=== PATIENT | male | born 1995 | race Caucasian/White ===

== ENCOUNTER 2017-06-15 10:32 | Emergency (ER) | payer SELFPAY ==
[2017-06-15] MEDS ORDERED: VALIUM PO ONE (12:04)
[2017-06-15] MEDS ORDERED: TORADOL IM ONE (12:04)
--- NOTE | 2017-06-15 12:13 | Emergency Department Report ---
HPI - General Chief Complaint: Neck Pain/Injury Time Seen by Provider: 06/15/17 11:56 - HPI HPI: This is a 22-year-old [place] male who presents to the emergency department from the [facility] with the complaint of left-sided neck pain that he believes is a muscle spasm that occurred about 30 minutes prior to presentation while he was "in class." The patient is therefore psychiatric conditions as a involuntary admission. He denies any trauma to the neck. He denies any headache, vision change, slurred speech, rash or skin color change. He did not take anything and was not given anything for his symptoms and presentation. He has a past medical history of hypertension. He says that he does have a primary care physician for follow-up once he is done at [facility]. ED Past Medical Hx - Past Medical History Previous Medical History?: Yes Hx Hypertension: Yes Hx Psychiatric Treatment: Yes (depression) Additional medical history: anxiety - Surgical History Past Surgical History?: No - Social History Smoking Status: Current Every Day Smoker Substance Use Type: None ED Review of Systems ROS: Stated complaint: MUSCLE SPASM IN NECK Other details as noted in HPI Comment: All other systems reviewed and negative Constitutional: denies: chills, fever Eyes: denies: eye pain, eye discharge, vision change ENT: denies: ear pain, throat pain Respiratory: denies: cough, shortness of breath, wheezing Cardiovascular: denies: chest pain, palpitations Gastrointestinal: denies: abdominal pain, nausea, diarrhea Genitourinary: denies: urgency, dysuria Musculoskeletal: other (neck pain). denies: back pain, joint swelling, arthralgia Skin: denies: rash, lesions Neurological: denies: headache, weakness, paresthesias Physical Exam - Physical Exam Vital Signs: Vital Signs 06/15/17 06/15/17 10:40 12:01 Temperature 97.9 F Pulse Rate 95 H Respiratory 22 18 Rate Blood Pressure 160/111 O2 Sat by Pulse 100 100 Oximetry Physical Exam: GENERAL: The patient is well-developed well-nourished. HENT: Normocephalic. Atraumatic. Patient has moist mucous membranes. EYES: Extraocular motions are intact. Pupils equal reactive to light bilaterally. NECK: Supple. Full range of motion. No midline tenderness to palpation, step- off or deformity. There is reproducible tenderness palpation to the left cervical muscles. CHEST/LUNGS: Clear to auscultation. There is no respiratory distress noted. HEART/CARDIOVASCULAR: Regular. There is no tachycardia. There is no gallop rub or murmur. ABDOMEN: Abdomen is soft, nontender. Patient has normal bowel sounds. There is no abdominal distention. SKIN: Skin is warm and dry. NEURO: The patient is awake, alert, and oriented. The patient is cooperative. The patient has no focal neurologic deficits. The patient has normal speech. MUSCULOSKELETAL: There is no tenderness or deformity. There is no limitation range of motion. There is no evidence of acute injury. ED Course Vital Signs 06/15/17 06/15/17 10:40 12:01 Temperature 97.9 F Pulse Rate 95 H Respiratory 22 18 Rate Blood Pressure 160/111 O2 Sat by Pulse 100 100 Oximetry ED Medical Decision Making - Medical Decision Making 22-year-old male presents to the emergency department with atraumatic left- sided neck pain that appears most consistent with a muscle spasm. He does not have true torticollis but the pain is reproducible to palpation along the lateral cervical muscles which are taut. He was given a shot of Toradol and a Valium for muscle relaxation. Eventually the patient says that he is feeling better and asking for discharge back to [facility]. - Differential Diagnosis muscle spasm, contusion, torticollis Critical Care Time: No Critical care attestation.: If time is entered above; I have spent that time in minutes in the direct care of this critically ill patient, excluding procedure time. ED Disposition Clinical Impression: Muscle spasms of neck Hypertension Qualifiers: Hypertension type: essential hypertension Qualified Code(s): I10 - Essential ( primary) hypertension Disposition: TO HOME OR SELFCARE Is pt being admited?: No Condition: Stable Instructions: Hypertension (ED), Muscle Spasm (ED) Additional Instructions: Please follow-up with your primary care physician once you're able to do so. You can try ice and/or heat for your neck but nothing directly against the skin. Take her blood pressure medications as previously prescribed. Try to stay away from foods that are high in salt, caffeinated products and/or tobacco products to help with your elevated blood pressure. Keep a blood pressure log. Return to the emergency Department with any worsening of her symptoms or any acute distress. Referrals: PRIMARY CARE, [Primary Care Provider] - 3-5 Days Time of Disposition: 12:38
[2017-06-15 12:43] VITALS: BP 157/106
== END 2017-06-15 12:47 | disposition home or self-care (01) ==
LOC: ED 10:32
DX: M62.838 Other muscle spasm (principal); I10 Essential (primary) hypertension; F17.210 Nicotine dependence, cigarettes, uncomplicated
CPT/HCPCS: 96372; 99282; J1885

== ENCOUNTER 2017-06-16 10:05 | Emergency (ER) | payer SELFPAY ==
[2017-06-16 10:56] VITALS: BP 146/99
[2017-06-16] MEDS ORDERED: MOTRIN PO ONE (11:24)
--- NOTE | 2017-06-16 21:43 | Emergency Department Report ---
Entered by AD PALMA, acting as scribe for CHARLINE RODRIGUEZ NP. ED Neck Pain/Injury HPI - General Chief Complaint: Neck Pain/Injury Stated Complaint: MUSCLE SPASMS IN NECK Time Seen by Provider: 06/16/17 11:18 Source: patient Mode of arrival: Ambulatory Limitations: No Limitations - History of Present Illness Initial Comments: 22 y/o male with a PMHx of anxiety and depression presents to the ED c/ left sided neck pain that began 1 day ago. Rates pain an 8/10 in severity, which he describes as throbbing in quality. Aggravated with movement and alleviated immobilization. Denies any trauma to the area. Stated he wake up this way this morning. Denies back pain, fever, chills, chest pain, SOB, RIVERO or dizziness, numbness, stiff neck. tingling. Patient was seen in this ED yesterday for same complaint.Patient stated he received a "shot" with relief but stated he wake up again with the same issue. Denies getting a prescription for anything including Flexeril. Patient states he was seen by his PCP this morning and was given Lisinopril to lower his elevated blood pressure. Denies telling his PCP about his neck pain. Allergic to carbamazepine and lisinopril. MD Complaint: neck pain Onset/Timin -: days(s) Place: home Radiation: left lateral Severity: severe Severity scale (0 -10): 8 Quality: other (throbbing) Consistency: constant Improves With: immobilization Worsens With: movement of neck Context: unknown Associated Symptoms: none. denies: headache, fever, numbness, tingling, weakness, vertigo, difficulty walking, swollen glands, difficulty swallowing, nausea, vomiting Treatments Prior to Arrival: none - Related Data Previous Rx's Medication Instructions Recorded Last Taken Type Ibuprofen [Motrin 600 MG tab] 600 mg PO Q8H PRN #30 tablet 06/16/17 Unknown Rx Allergies Allergy/AdvReac Type Severity Reaction Status Date / Time carbamazepine [From Tegretol] AdvReac Swelling Verified 06/15/17 10:45 lisinopril AdvReac Swelling Verified 06/15/17 10:45 ED Review of Systems Comment: All other systems reviewed and negative Constitutional: denies: chills, diaphoresis, fever, weakness Eyes: denies: eye pain, eye discharge, vision change ENT: denies: ear pain, throat pain Respiratory: denies: cough, orthopnea, shortness of breath, SOB with exertion, SOB at rest, stridor, wheezing Cardiovascular: denies: chest pain, palpitations, dyspnea on exertion, orthopnea , edema, syncope, paroxysmal nocturnal dyspnea Endocrine: no symptoms reported Gastrointestinal: denies: abdominal pain, nausea, vomiting, diarrhea Genitourinary: denies: urgency, dysuria Musculoskeletal: myalgia (left lateral neck pain). denies: back pain, joint swelling, arthralgia Skin: denies: rash, lesions Neurological: denies: headache, weakness, numbness, paresthesias Psychiatric: denies: anxiety, depression Hematological/Lymphatic: denies: easy bleeding, easy bruising ED Past Medical Hx - Past Medical History Previous Medical History?: Yes Hx Hypertension: Yes Hx Psychiatric Treatment: Yes (depression) Additional medical history: anxiety - Surgical History Past Surgical History?: No - Family History Family history: no significant - Social History Smoking Status: Current Every Day Smoker Substance Use Type: None - Medications Home Medications: Home Medications Medication Instructions Recorded Confirmed Last Taken Type Ibuprofen [Motrin 600 MG tab] 600 mg PO Q8H PRN #30 tablet 06/16/17 Unknown Rx ED Physical Exam - General Limitations: No Limitations General appearance: alert, in no apparent distress - Head Head exam: Present: atraumatic, normocephalic - Eye Eye exam: Present: normal appearance, PERRL, EOMI. Absent: scleral icterus, conjunctival injection, nystagmus, periorbital swelling, periorbital tenderness Pupils: Present: normal accommodation - ENT ENT exam: Present: normal exam, normal orophraynx, mucous membranes moist, TM's normal bilaterally, normal external ear exam - Neck Neck exam: Present: tenderness (left cervical paraspinal tenderness), full ROM. Absent: normal inspection, meningismus, lymphadenopathy - Respiratory Respiratory exam: Present: normal lung sounds bilaterally. Absent: respiratory distress, wheezes, rales, rhonchi, stridor, chest wall tenderness, accessory muscle use, decreased breath sounds, prolonged expiratory - Cardiovascular Cardiovascular Exam: Present: regular rate, normal rhythm, normal heart sounds. Absent: systolic murmur, diastolic murmur, rubs, gallop - GI/Abdominal GI/Abdominal exam: Present: soft, normal bowel sounds. Absent: distended - Extremities Exam Extremities exam: Present: normal inspection, full ROM, normal capillary refill. Absent: tenderness, pedal edema, joint swelling, calf tenderness - Back Exam Back exam: Present: normal inspection, full ROM, paraspinal tenderness ( cervical region). Absent: tenderness, CVA tenderness (R), CVA tenderness (L), muscle spasm, vertebral tenderness, rash noted - Neurological Exam Neurological exam: Present: alert, oriented X3, CN II-XII intact, normal gait, reflexes normal. Absent: motor sensory deficit - Psychiatric Psychiatric exam: Present: normal affect, normal mood - Skin Skin exam: Present: warm, dry, intact. Absent: rash ED Course Vital Signs 06/16/17 10:53 Temperature 97.8 F Pulse Rate 68 Blood Pressure 146/99 O2 Sat by Pulse 100 Oximetry - Reevaluation(s) Reevaluation #1: 06/16/17 11:40 Patient speaks in full sentences with no signs of distress noted. ED Medical Decision Making - Medical Decision Making 22-year-old male presents with left-sided neck pain taht appears most consistent with a muscle spasm. No signs of toticollis. patient was instructed follow-up with your primary care doctor in 3-5 days or if symptoms worsen such as bladder or bowel stability, chest pain, short of breath, numbness or tingling sensation in extremities, headache, dizziness, visual changes, nausea vomiting, or abdominal pain, return back to emergency room as was possible. patient was prescribed Motrin. At time time of discharge, the patient does not seem toxic or ill in appearance. No acute signs of distress noted. Patient agrees to discharge treatment plan of care. No further questions noted by the patient. ED Disposition Clinical Impression: Muscle spasm Disposition: DC-01 TO HOME OR SELFCARE Is pt being admited?: No Does the pt Need Aspirin: No Condition: Stable Instructions: Muscle Spasm (ED), Ibuprofen (By mouth) Additional Instructions: Follow-up with your primary care doctor in 3-5 days or if symptoms worsen such as bladder or bowel stability, chest pain, short of breath, numbness or tingling sensation in extremities, headache, dizziness, visual changes, nausea vomiting, or abdominal pain, return back to emergency room as was possible. Take Motrin as prescribed. Apply ice and/or heat for your neck but nothing directly against the skin. Prescriptions: Ibuprofen [Motrin 600 MG tab] 600 mg PO Q8H PRN #30 tablet PRN Reason: Pain Referrals: PRIMARY CARE, [Primary Care Provider] - 3-5 Days GUILLERMINA VAN MD [Staff Physician] - 3-5 Days [facility] [Outside] - 3-[address] [facility] [Outside] - 3-5 Days This documentation as recorded by the LOUIE limon JASMINE,accurately reflects the service I personally performed and the decisions made by ,CHARLINE RODRIGUEZ, [employer] TECHNICIAN.
== END 2017-06-16 12:10 | disposition home or self-care (01) ==
LOC: ED 10:05
DX: M62.838 Other muscle spasm (principal); I10 Essential (primary) hypertension; F17.210 Nicotine dependence, cigarettes, uncomplicated; Z88.8 Allergy status to other drugs, medicaments and biological substances
CPT/HCPCS: 99282

== ENCOUNTER 2017-06-16 14:30 | Emergency (ER) | payer SELFPAY | END 2017-06-16 14:40 | disposition left against medical advice (07) | LOC: ED 14:30 | DX: M62.838 Other muscle spasm (principal); Z53.21 Procedure and treatment not carried out due to patient leaving prior to being seen by health care provider ==

== ENCOUNTER 2017-06-22 22:18 | Emergency (ER) | payer SELFPAY ==
[2017-06-22 22:55] VITALS: BP 123/87
[2017-06-22 23:15] LABS: Basophils % (Auto) 0.5 % (0.0-1.8); Eosinophils % (Auto) 0.4 % (0.0-4.3); Hematocrit 52.3 % (35.5-45.6); Hemoglobin 16.8 gm/dl (11.8-15.2); Mean Corpuscular HGB Conc 32 % (32-34); Mean Corpuscular Hemoglobin 29 pg (28-32); Mean Corpuscular Volume 91 fl (84-94); Platelet Count 197 K/mm3 (140-440); Red Blood Count 5.77 M/mm3 (3.65-5.03); Red Cell Distribution Width 15.1 % (13.2-15.2); White Blood Count 6.6 K/mm3 (4.5-11.0)
[2017-06-22 23:33] LABS: Anion Gap 18 mmol/L; BUN/Creatinine Ratio 14.44; Blood Urea Nitrogen 13 mg/dL (9-20); Calcium 9.5 mg/dL (8.4-10.2); Carbon Dioxide 25 mmol/L (22-30); Chloride 101.6 mmol/L (98-107); Glucose 90 mg/dL (75-100); Potassium 4.4 mmol/L (3.6-5.0); Sodium 140 mmol/L (137-145)
== END 2017-06-23 00:46 | disposition left against medical advice (07) ==
LOC: ED 22:18
DX: R07.9 Chest pain, unspecified (principal); Z53.21 Procedure and treatment not carried out due to patient leaving prior to being seen by health care provider
CPT/HCPCS: 36415; 80048; 84484; 85025; 93005; 93010